=== PATIENT | female | born 1990 | race African-American/Black ===

== ENCOUNTER 2017-01-02 04:15 | Emergency (ER) | payer OTHER ==
[~2017-01-02] VITALS: Ht 157.5 cm; Wt 119.7 kg
[~2017-01-02 04:15] MED LIST: BENTYL10 MG PO; FLONASE16 G1 BOTH NARES; NO HOME MEDS; POLYTRIM EYE DR10 ML BOTH EYES
[2017-01-02] MEDS ORDERED: PEN-VEE K,VEET500 MG PO (04:48)
[2017-01-02] MEDS ORDERED: NAPROSYN500 MG PO (04:48)
[2017-01-02 04:57] VITALS: BP 144/98
== END 2017-01-02 04:58 | disposition home or self-care (01) ==
LOC: EME 04:15
PROC: 3E0T3BZ Introduction of Anesthetic Agent into Peripheral Nerves and Plexi, Percutaneous Approach (ICD-10-PCS; principal; 2017-01-02)
DX: K08.89 Other specified disorders of teeth and supporting structures (principal); K05.30 Chronic periodontitis, unspecified
CPT/HCPCS: 99281; 99283